=== PATIENT | female | born 1960 | race Caucasian/White ===

== ENCOUNTER → 2017-01-24 | Outpatient (CLI) | payer BC ==
--- NOTE | 2017-01-30 22:21 | HKNOTE ---
DATE OF SERVICE: 01/24/2017 The pain continues in her right hip. Note that she saw Dr. Chopra for the right hip. He ordered an MRI scan of the hip which was performed on 12/26/2016. She herself did not see the MRI report o r result but Dr. Chopra said that the results were "okay." Physical therapy was ordered by Dr. Estela Pettit. The physical therapy helped "a little." The therapist used laser and ultrasound. This helped somewhat. Between June and October the patient is back to running again 3 to 5 miles a day, 3 times per w [place] [employer] [place]. The pain used to be over the lateral aspect of the right thigh, but the pain pattern has not changed . Her main pain now is over the right buttocks. She limps. It is difficult for her to handle stai rs, especially going up. She currently does not have any back pain. She gets pain in the right but tocks which radiates down the posterior aspect of her right thigh to just above the knee. She has n o numbness or tingling in either leg. The patient has a torn labrum in her right shoulder. She asks for the name of a shoulder surgeon. PHYSICAL EXAMINATION: GENERAL: The patient is a fit-looking 56-year-old female. VITAL SIGNS: Height 5 feet 4 inches, weight 130 pounds. Blood pressure 110/65, temperature 97.9. GAIT: Patient walks without a walking aid. Her gait is slightly antalgic. RIGHT HIP: A full range of motion without pain. Some tenderness over the right greater trochanter. NEUROLOGIC: Motor examination reveals no muscle deficit in the lower extremities. Deep tendon refle xes in the lower extremities: Right knee jerk +, left knee jerk +, right ankle jerk +, left ankle j erk +. Straight leg raising is negative bilaterally at 80 degrees. Lasegue and PALLAVI tests are negat corin. IMAGING: An MRI scan of the right hip obtained on 12/26/[address] Bert Cope as brett wing "a tear to the right gluteus medius tendon near its insertion point in the right greater trocha nter possibly accompanied by a mild degree of trochanteric bursitis. A small full thickness tear of the right acetabular labrum." DIAGNOSES: 1. Right-sided sciatica. 2. Torn right gluteus medius muscle. 3. Torn labrum in the right hip. MANAGEMENT: A new MRI scan of the right hip is being obtained today. The patient is being referred to Dr. Robel Parker to see if an arthroscopic treatment is possible for the torn abductor medius and minimus and/or for the trochanteric bursitis. She will be seen by me again after she has been evaluated by Dr. Parker. Dictated By: CHEMA MOREAU/MELO Conf#: [id number] DID#: [id number]
== END | disposition home or self-care (01) ==
LOC: HKI 14:08
DX: M25.551 Pain in right hip (principal); M54.31 Sciatica, right side; S73.101A Unspecified sprain of right hip, initial encounter
CPT/HCPCS: G0463